=== PATIENT | female | born 2000 | race Caucasian/White ===

== ENCOUNTER 2018-03-09 16:33 | Inpatient (IN) | payer OTHER ==
[~2018-03-09] VITALS: Ht 170.2 cm; Wt 73.0 kg
[~2018-03-09 16:33] MED LIST: NORCO 5-325 TA1 EACH PO; PRENATA CHEWAB1 EACH PO; ZITHROMAX250 MG PO
--- NOTE | 2018-03-10 07:03 | PR ---
[facility] [address] [facility] [place], [place] [address] Signed Progress Notes IP Datetime Report Generated by ELIZABETH: 03/10/2018 07:03 PROGRESS NOTES: [id number] Impression: Slow Progression of Labor Procedures: Sterile Vag Exam Plan: Continue present management VITAL SIGNS: [id number] Vital Signs: Reviewed; Within Normal Limits EXAM: [id number] Dilatation: 4.0 Effacement: 80 Station: -2 Uterine Contractions: q 2 to 5 min MEMBRANES: [id number] Membrane Status: Ruptured Amniotic Fluid Color: Clear Comments: Comfortable after epidural. Slow progress. Suspect contractions are inadequate. Will increase pit as tolerated. Fetus A: [id number] FHR Baseline: 130 Variability: Moderate 6-25bpm Accelerations: 15X15 Decelerations: Variable FHR Category: Category II Presentation: Vertex Comments on Fetus A: overall reassuring but will continue close observation Fetus B: [id number] Signing Physician: Cari Dumont MD Copies: ~ *Electronically Signed* 03/10/18 0703 CARI DUMONT MD PATIENT NAME: LARON ROSAN PROGRESS NOTE DATE OF : [birth year] PHYSICIAN: CARI DUMONT MD RPT #: [id number] REPORT IS CONFIDENTIAL AND NOT TO BE RELEASED WITHOUT AUTHORIZATION
--- NOTE | 2018-03-11 08:04 | PR ---
[facility] [address] [facility] [place], [place] [address] Signed PP Progress Notes Datetime Report Generated by ELIZABETH: 03/11/2018 08:04 SUBJECTIVE: [id number] Pain: Within normal limits Vital Signs: [id number] Vital Signs: Reviewed; Within Normal Limits EXAM: [id number] Cardiovascular: Not Done Respiratory: Not Done Abdomen/Uterus: Abnormal Lochia: Normal Vulva/Perineum: Not Done Breasts: Not Done CVA Tenderness: Not Done Extremities: Normal Incision: Not Applicable Progress: Abnormal Exam Comments: Fundus firm, NT @ U-1. H/H 10.3/30.1, WBC 10.2, plat 208k IMPRESSION/PLAN/PROCEDURES: [id number] Impression: Normal progression; difficulties Plan: Continue present management; consult Progress Notes: Doing well other than breast feeding issues. Signing Physician: Cari Dumont MD Copies: ~ *Electronically Signed* 03/11/18 0804 CARI DUMONT MD PATIENT NAME: LARON ROSA PROGRESS NOTE DATE OF : 98 PHYSICIAN: CARI DUMONT MD RPT #: [id number] REPORT IS CONFIDENTIAL AND NOT TO BE RELEASED WITHOUT AUTHORIZATION
--- NOTE | 2018-03-12 07:53 | PR ---
[facility] [address] [facility] [place] [address] Signed PP Progress Notes Datetime Report Generated by CPN: 03/12/2018 07:53 SUBJECTIVE: [id number] Pain: Within normal limits Vital Signs: [id number] Vital Signs: Reviewed; Within Normal Limits EXAM: [id number] Cardiovascular: Not Done Respiratory: Not Done Abdomen/Uterus: Abnormal Lochia: Normal Vulva/Perineum: Not Done Breasts: Not Done CVA Tenderness: Not Done Extremities: Normal Incision: Not Applicable Progress: Abnormal Exam Comments: Fundus firm, NT @ U-2. IMPRESSION/PLAN/PROCEDURES: [id number] Impression: Normal progression Plan: Discharge Procedures: None Progress Notes: Doing well. She is ready for D/C. Signing Physician: Cari Dumont MD Copies: ~ *Electronically Signed* 03/12/18 0753 CARI DUMONT MD PATIENT NAME: LARON ROSA PROGRESS NOTE DATE OF : 98 PHYSICIAN: CARI DUMONT MD RPT #: [id number] REPORT IS CONFIDENTIAL AND NOT TO BE RELEASED WITHOUT AUTHORIZATION
== END 2018-03-12 13:10 | disposition home or self-care (01) | DRG 807 ==
LOC: FBC 16:33
PROVIDERS: ADMIT Obstetrics & Gynecology
PROC: 00HU33Z Insertion of Infusion Device into Spinal Canal, Percutaneous Approach (ICD-10-PCS; 2018-03-09)
PROC: 3E0R3BZ Introduction of Anesthetic Agent into Spinal Canal, Percutaneous Approach (ICD-10-PCS; 2018-03-09)
PROC: 10E0XZZ Delivery of Products of Conception, External Approach (ICD-10-PCS; principal; 2018-03-10)
PROC: 0HQ9XZZ Repair Perineum Skin, External Approach (ICD-10-PCS; 2018-03-10)
DX: O42.013 Preterm premature rupture of membranes, onset of labor within 24 hours of rupture, third trimester (principal); Z37.0 Single live birth; Z3A.35 35 weeks gestation of pregnancy; O69.81X0 Labor and delivery complicated by cord around neck, without compression, not applicable or unspecified; O70.0 First degree perineal laceration during delivery
CPT/HCPCS: 01960; 36415; 84112; 85027; J2540; J2590; J2795; J3010; J7060; J7120

== ENCOUNTER 2019-05-09 18:13 | Emergency (ER) | payer OTHER ==
[~2019-05-09] VITALS: Ht 170.2 cm; Wt 72.6 kg
== END 2019-05-09 22:01 | disposition left against medical advice (07) ==
LOC: ED 18:13
DX: Z53.21 Procedure and treatment not carried out due to patient leaving prior to being seen by health care provider (principal)
CPT/HCPCS: 73110

== ENCOUNTER 2021-06-16 20:17 | Emergency (ER) | payer OTHER ==
[~2021-06-16] VITALS: Ht 170.2 cm; Wt 72.6 kg
[2021-06-16] MEDS ORDERED: IBUPROFEN800 MG PO (22:10)
[2021-06-16] MEDS ORDERED: OXYCODONE-ACET1 EAC1 PO (22:10)
[2021-06-16] MEDS ORDERED: ONDANSETRON ODT8 MG PO (22:10)
[2021-06-16] MEDS ORDERED: DOXYCYCLINE HY100 MG PO (23:23)
== END 2021-06-16 23:33 | disposition home or self-care (01) ==
LOC: ED 20:17
DX: T81.41XA Infection following a procedure, superficial incisional surgical site, initial encounter (principal); F17.200 Nicotine dependence, unspecified, uncomplicated; Z88.5 Allergy status to narcotic agent; Z79.899 Other long term (current) drug therapy
CPT/HCPCS: 99283; A9270